=== PATIENT | female | born 1990 | race Hispanic/Latino ===

== ENCOUNTER → 2024-01-20 | Outpatient (CLI) | payer BC | END | disposition home or self-care (01) | LOC: RAH 10:04 | PROVIDERS: ATTEND Family Medicine | DX: J40 Bronchitis, not specified as acute or chronic (principal) | CPT/HCPCS: 71046 ==

== ENCOUNTER → 2024-07-21 | Outpatient (CLI) | payer BC ==
--- NOTE | 2024-07-21 11:25 | HMCIMG ---
RIGHT KNEE RADIOGRAPHS - 3 VIEWS INDICATION: Pain COMPARISON: None FINDINGS: AP, lateral, and oblique views. No acute fracture or dislocation identified. No significant joint effusion is present. Overlying soft tissues appear normal. IMPRESSION: No evidence for fracture or dislocation.
--- NOTE | 2024-07-21 11:25 | HMCIMG ---
LEFT KNEE RADIOGRAPHS - 3 VIEWS INDICATION: Pain COMPARISON: None FINDINGS: AP, lateral, and oblique views. No fracture or dislocation identified. No significant joint effusion is present. Overlying soft tissues appear normal. No radiopaque foreign body noted. IMPRESSION: No evidence for fracture or dislocation.
== END | disposition home or self-care (01) ==
LOC: RAH 10:25
PROVIDERS: ATTEND Physician Assistant Medical
DX: M25.562 Pain in left knee (principal); M25.561 Pain in right knee
CPT/HCPCS: 73562

== ENCOUNTER → 2024-11-15 | Outpatient (CLI) | payer BC ==
--- NOTE | 2024-11-16 06:52 | HMCIMG ---
EXAMINATION: COMPLETE TRANSABDOMINAL ULTRASOUND OF PELVIS. CLINICAL HISTORY: Pain. COMPARISON: None provided. TECHNIQUE: Multiple real-time grayscale images of the pelvis were obtained with transabdominal transducer. In addition, color Doppler is medically necessary to perform to assess for vascularity and blood flow. FINDINGS: The uterus is anteverted, normal in caliber and measures 8.6 x 3.5 x 4.3 cm in the craniocaudal, AP, and transverse dimensions respectively. The endometrium measures approximately 0.8 cm. Cervix appears normal. The right ovary measures 4.1 x 3.4 x 3.8 cm. There is a cyst that measures 2.7 x 2.1 x 2.7 cm. No septations, internal echoes, or solid components seen. The left ovary is normal in caliber and measures 3.3 x 1.8 x 2.1 cm. Vascularity of the ovaries is normal. There is no free fluid in the cul-de-sac. IMPRESSION: Right ovarian simple cyst. Otherwise, unremarkable pelvic ultrasound. /Grant
== END | disposition home or self-care (01) ==
LOC: RAH 08:32
PROVIDERS: ATTEND Family Medicine
DX: N83.291 Other ovarian cyst, right side (principal); N85.4 Malposition of uterus; R10.2 Pelvic and perineal pain; R10.30 Lower abdominal pain, unspecified
CPT/HCPCS: 76856